=== PATIENT | female | born 1995 | race African-American/Black ===

== ENCOUNTER 2016-05-05 13:53 | Outpatient (CLI) | payer OTHER ==
[~2016-05-05] VITALS: Ht 167.6 cm; Wt 79.5 kg
[2016-05-05 14:08] VITALS: Ht 167.6 cm; Wt 79.5 kg
[2016-05-05 14:09] VITALS: BP 110/66; PULSE 72; RESP 16
[2016-05-05] MEDS ORDERED: PRENAT PO (14:10)
[2016-05-05] MEDS ORDERED: LACTATED RINGER'S 1,000 ML IV SCH (15:00)
[2016-05-05 15:26] LABS: ADD UMIC YES; URINE BILIRUBIN (Dip) NEGATIVE (NEGATIVE); URINE BLOOD (Dip) NEGATIVE (NEGATIVE); URINE COLOR LT. YELLOW (YELLOW); URINE GLUCOSE (Dip) NEGATIVE (NEGATIVE); URINE KETONES (Dip) NEGATIVE (NEGATIVE); URINE LEUKOCYTE ESTERASE (Dip) TRACE (NEGATIVE); URINE NITRITE (Dip) NEGATIVE (NEGATIVE); URINE TOTAL PROTEIN (Dip) NEGATIVE (NEGATIVE); URINE UROBILINOGEN (Dip) 0.2 E.U./dL (0.1-1.0)
[2016-05-05 15:40] LABS: BACTERIA,URINE FEW; SQUAMOUS EPITHELIAL CELL,UR MODERATE; URINE RBCS NONE SEEN /HPF (0)
--- NOTE | 2016-05-05 15:44 | RADRPT ---
PROCEDURE: US Limited OB. CLINICAL INDICATION: labor TECHNIQUE: Multiple sonographic images of the pelvis were obtained. Transabdominal imaging only w as performed. COMPARISON: No prior studies are available for comparison. FINDINGS: Cardiac activity is present with 125 beats per minute. Presentation is vertex. Measurements were made in order to determine age. The results are as follows: BPD = 33 w 0 d HC = 32 w 5 d AC = 31 w 4 d FL = 32 w 5 d Estimated gestational age is approximately 32 weeks and 4 days. Estimated weight is 1905 g. The placenta is anterior, with no evidence of previa. Cervical length is within normal limits measuring 3.1 cm. IMPRESSION: 1. Single, live intrauterine with estimated age of 32 weeks, 4 days. 2. Estimated weight: 1905 g, 11%. 3. Cephalic presentation. 4. Anterior placenta without previa or abruption. 5. Normal cervical length. RPTAT: [facility] .Pipo Queen MD, Date Time Electronically viewed and signed by .Pipo Queen MD, on 05/05/2016 15:44 .C/
--- NOTE | 2016-05-05 15:51 | RADRPT ---
PROCEDURE: US OB. CLINICAL INDICATION: labor TECHNIQUE: Pelvic ultrasound performed for biophysical profile. COMPARISON: None FINDINGS: Single intrauterine gestation present with heart rate at 01/25 beats per minute. Presentation is ce phalic. Placenta is anterior grade 1/2.. Biophysical profile score is 8/8 (breathing=2, movement=2 , tone =2, fluid volume=2). Amniotic fluid volume is within normal limits, with FELIPE = 11.4 cm. IMPRESSION: Live intrauterine gestation in cephalic presentation. Biophysical profile score 8/8. FELIPE of 11.4 cm .Austin Downs MD, Date Time Electronically viewed and signed by .Austin Downs MD, on 05/05/2016 15:51 .M/
--- NOTE | 2016-05-05 16:07 | HP ---
Date/Time of Note Date/Time of Note DATE: 05/05/16 TIME: 16:02 OB - History Hx of Present Free Text/Dictation Pt is a 21yo at 33+3 presenting with c/o progressively worsening intermittent lower abdominal and lower back pain since last night at 2200. Pt reports normal FM, denies LOF or VB. Primary OB in [place] at [facility]. Pt reports hx of 36wk and FT . PROCEDURE: US Limited OB. CLINICAL INDICATION: labor TECHNIQUE: Multiple sonographic images of the pelvis were obtained. Transabdominal imaging only was performed. COMPARISON: No prior studies are available for comparison. FINDINGS: Cardiac activity is present with 125 beats per minute. Presentation is vertex. Measurements were made in order to determine age. The results are as follows: BPD = 33 w 0 d HC = 32 w 5 d AC = 31 w 4 d FL = 32 w 5 d Estimated gestational age is approximately 32 weeks and 4 days. Estimated weight is 1905 g. The placenta is anterior, with no evidence of previa. Cervical length is within normal limits measuring 3.1 cm. IMPRESSION: 1. Single, live intrauterine with estimated age of 32 weeks, 4 days. 2. Estimated weight: 1905 g, 11%. 3. Cephalic presentation. 4. Anterior placenta without previa or abruption. 5. Normal cervical length. PROCEDURE: US OB. CLINICAL INDICATION: labor TECHNIQUE: Pelvic ultrasound performed for biophysical profile. COMPARISON: None FINDINGS: Single intrauterine gestation present with heart rate at 01/25 beats per minute. Presentation is cephalic. Placenta is anterior grade 1/2.. Biophysical profile score is 8/8 (breathing=2, movement=2, tone =2, fluid volume =2). Amniotic fluid volume is within normal limits, with FELIPE = 11.4 cm. IMPRESSION: Live intrauterine gestation in cephalic presentation. Biophysical profile score 8/8. FELIPE of 11.4 cm Estimated Due Date: Jun 20, 2016 : 7 Para: 2 Care: Other (Unsure frequency and nature of care) Obstetrical Complications: None Medical Complications: None Past Family/Social History * chart not available. OB Admission Exam Vital Signs Vital Signs Vital Signs Date Time Temp Pulse Resp B/P Pulse Ox O2 Delivery O2 Flow Rate FiO2 05/05/16 14:09 98.1 72 16 110/66 Physical Exam HEENT: WNL Heart: Rhythm Normal Lungs: Clear Abdomen: WNL Extremities: Normal Membranes: Intact Heart Rate: 120's Accelerations: Accelerations Present Decelerations: No Decelerations Varibility: Moderate Contractions on Admission: 6-10 Minutes Apart (irregular q2-7 min) OB Assessment/Plan Other Assessment: Contractions Reassuring Status EFW 11% Other plan: Given symptomatic improvement and decreased UCs on toco s/p IV hydration, neg FFN, UA and CL >3cm, pt appropriate for d/c home Pt will f/up with primary OB on 05/09/16 PTL, PPROM and FKC precautions reviewed Advised pt to continue adequate PO hydration Of note, EFW by today's U/S 11%ile. However, it is unclear whether the patient' s reports EDC is correct (Per pt she has 3 EDCs). Discussed U/S result with pt and recommended pt have another growth U/S at primary OB office to ensure normal growth is normal based on the EDC used in her records. Questions answered to patient's satisfaction. MADAY FOWLER MD May 05, 2016 16:07
--- NOTE | 2016-05-05 16:26 | TRIAGE ---
OB Triage Datetime Report Generated by CPN: 05/05/2016 16:26 Datetime: 05/05/2016 16:14 Labor Evaluation Frequency: x1 Monitor Mode: External Duration (sec)2399: 40 Quality: Mild Pattern: Normal: <= 5 Contractions in 10 Minutes Resting Tone [place]: Relaxed Heart Rate FHR Baseline Rate: 135 Monitor Mode: External US Variability: Moderate 6-25 bpm Accelerations: 15X15 Decelerations: None Category: Category I Pain Assessment Pain Scale: 6 Pain Presence: Intermittent Pain Type: Sharp Pain Location: Back Pain Goal: 3 Datetime: 05/05/2016 15:00 Labor Evaluation Frequency: OCC Monitor Mode: External Duration (sec)2399: 20-40 Quality: Mild Pattern: Normal: <= 5 Contractions in 10 Minutes Resting Tone [place]: Relaxed Heart Rate FHR Baseline Rate: 135 Monitor Mode: External US Variability: Moderate 6-25 bpm Accelerations: 15X15 Decelerations: None Category: Category I Pain Assessment Pain Scale: 8 Pain Presence: Intermittent Pain Type: Stabbing Pain Location: Abdomen; Back Pain Goal: 3 Datetime: 05/05/2016 14:31 Assessment Type: Triage Maternal Assessment Level of Consciousness: Fully Conscious DTR's/Clonus: DTRs 2+ Headache: Denies Blurred Vision: No Respiratory Effort: Unlabored; Regular Rhythm; Equal Expansion Breath Sounds, Left: Clear and Equal Breath Sounds, Right: Clear and Equal Nausea/Vomiting: Denies RUQ Epigastric Pain: Denies Lower Extremities Edema: None Degree: None Upper Extremities Edema: None Degree: None Facial Edema: None Fall Risk Assessment History of Falling: (0) No Secondary Diagnosis: (0) No Ambulatory Aid: (0) Bedrest/Nurse Assist IV Therapy: (0) No Gait: (0) Normal/Bedrest/Immobile Mental Status: (0) Oriented to Own Ability Fall Score: 0 Fall Risk Score Definition: No Risk: No action required Datetime: 05/05/2016 14:23 Vaginal Exam Dilatation (cms): 0.0 Exam By: wliu Datetime: 05/05/2016 14:04 EGA: 33.3 Datetime: 05/05/2016 14:03 EGA: 33.3 Datetime: 05/05/2016 14:00 Time of Arrival: 05/05/2016 13:55 Arrived By: Ambulatory Arrived From: Home Chief Complaint: pt. came to hospital c/o lower abdominal pain and lower back pain, radiated to va ginal last night, getting worst since 0600am, off and on, pain level 8/10 Movement: Present Contractions: Irregular Time Contractions Began: 05/05/2016 06:00 Rupture of Membranes: Denies Vaginal Bleeding: None Vaginal Discharge: Denies Recent Sexual Intercouse: Denies Abdominal Trauma: Not Applicable Patient Complaints: Back Pain Time Provider Notified: 05/05/2016 14:01 Provider Notified: Initial Plan: r/o ptl
== END 2016-05-05 15:30 | disposition home or self-care (01) ==
LOC: OBT 13:53 → L-D 13:55 → OBT 15:30
PROVIDERS: ATTEND Obstetrics & Gynecology
DX: O60.03 Preterm labor without delivery, third trimester (principal); Z3A.33 33 weeks gestation of pregnancy
CPT/HCPCS: 36415; 76815; 76817; 76818; 81001; 82731; 96360; 96361; J7120; Z7500; 81003; G0463